=== PATIENT | female | born 1965 | race Caucasian/White ===

== ENCOUNTER 2017-02-08 07:15 | Day surgery (SDC) | payer MEDICARE, OTHER ==
--- NOTE | ~2017-02-08 | EGD ---
EGD REPORT [facility] [address] [address] NAME: RADHA JEONG : 67 STATUS : REG [facility] PAT#: [id number] AGE: 51 ADM/REG DATE : 02/08/17 MR#: [id number] REPORT SERV DATE: 02/08/17 DICTATED BY: ALEXANDRA PISANO DATE: 02/08/17 REPORT STATUS : Draft TRANSCRIBED BY: [facility] DATE: 02/08/17 Endoscopy Center Patient Name: Radha Jeong Date of : 1965 Attending MD: ALEXANDRA PISANO MD Procedure Date No Time: 02/08/2017 Procedure: Upper GI endoscopy Indications: Follow-up of esophageal varices in patient with suspected portal hypertension Referring MD: ANNA BROOKS MD, ADILIA TATE Medicines: as per anesthesia Complications: No immediate complications. Procedure: Pre-Anesthesia Assessment: - ASA Grade Assessment: III - A patient with severe systemic disease. After obtaining informed consent, the endoscope was passed under direct vision. Throughout the procedure, the patient's blood pressure, pulse, and oxygen saturations were monitored continuously. The [facility] [id number] was introduced through the mouth, and advanced to the second part of duodenum. The upper GI endoscopy was accomplished without difficulty. The patient tolerated the procedure. Findings: Grade I varices were found in the middle third of the esophagus and in the lower third of the esophagus. Mild portal hypertensive gastropathy was found in the gastric antrum. Localized mild inflammation characterized by erythema was found in the gastric body. The cardia and gastric fundus were normal on retroflexion. The examined duodenum was normal. Impression: - Grade I esophageal varices. - Portal hypertensive gastropathy. - Gastritis. - Normal examined duodenum. Recommendation: - Continue present medications. Procedure Code(s): --- Professional --- 45897, Esophagogastroduodenoscopy, flexible, transoral; diagnostic, including collection of specimen(s) by brushing or washing, when performed (separate procedure) EGD REPORT [facility] [address] [place]. [address] NAME: RADHA JEONG : [birth year] STATUS : REG [facility] PAT#: [id number] AGE: 51 ADM/REG DATE : 02/08/17 MR#: [id number] REPORT SERV DATE: 02/08/17 DICTATED BY: ALEXANDRA PISANO DATE: 02/08/17 REPORT STATUS : Draft TRANSCRIBED BY: [employer] DATE: 02/08/17 Diagnosis Code(s): --- Professional --- I85.00, Esophageal varices without bleeding K76.6, Portal hypertension K31.89, Other diseases of stomach and duodenum K29.70, Gastritis, unspecified, without bleeding CPT copyright 2013 [employer]. All rights reserved. The codes documented in this report are preliminary and upon linting machine operator review may be revised to meet current compliance requirements. ALEXANDRA PISANO MD 02/08/2017 9:08 AM This report has been signed electronically. Number of Addenda: 0 Note Initiated On: 02/08/2017 8:44 AM Scope Withdrawal Time 0 hours 0 minutes 0 seconds [address] [place], [place] [id number]
[~2017-02-08 07:15] MED LIST: ACET500CAP PO; ALPHA LIPOIC50 M1 PO; BL FLAX SEED1000 MG OR; CARASPUDL PO; DEMA10T PO; DEMA20 PO; FLAXSEED OIL1000 MG PO; FLUTICASONE PROPION; GENVOYA; INTEGRA; INTEGRA PLUS C1 EACH PO; INTEGRA PO; ISENTRESS400 MG PO; KLOR-CON 1010 MEQ PO; KLOR-CON M2020 MEQ PO; KLOR-CON20 MEQ; LEXAPRO10 PO; LEXAPRO20 PO; LIPOTRIAD1 CAP; MARI2.5 PO; MEGACEUDL PO; MULTI-VIT HP OR; MULTIVIT/MIN PO; MYFERON 150150 MG OR; NEUR300 PO; NORVIR100 PO; PREZCOBIX PO; PREZISTA600 MG PO; PROTONIX PO; SPIRO25 PO; STRIBILD TABLE1 EACH PO; SURBEX-T1 TAB PO; SURBEX/ZINC1 TAB PO; TESS PO; TIVICAY PO; TIVICAY50 MG PO; TRAZ50 PO; TRIVORA-28 PO; TRUVADA; TRUVADA PO; ULTRAM50 PO; VITC500 PO; VITE PO; XANAX1 MG PO; ZOFRAN4 PO; [UNRECOGNIZED DRUG - OTHER]
== END 2017-02-08 23:59 | disposition home or self-care (01) ==
LOC: DMU 07:15
PROVIDERS: Internal Medicine Gastroenterology
PROC: 0DJ08ZZ Inspection of Upper Intestinal Tract, Via Natural or Artificial Opening Endoscopic (ICD-10-PCS; principal; 2017-02-08 09:00)
DX: I85.00 Esophageal varices without bleeding (principal); K76.6 Portal hypertension; K31.89 Other diseases of stomach and duodenum; K29.70 Gastritis, unspecified, without bleeding; R18.8 Other ascites; K74.60 Unspecified cirrhosis of liver; I81 Portal vein thrombosis; F41.9 Anxiety disorder, unspecified; F32.9 Major depressive disorder, single episode, unspecified; K21.9 Gastro-esophageal reflux disease without esophagitis; E89.0 Postprocedural hypothyroidism; Z88.1 Allergy status to other antibiotic agents; K64.9 Unspecified hemorrhoids; M81.0 Age-related osteoporosis without current pathological fracture; D64.9 Anemia, unspecified; Z21 Asymptomatic human immunodeficiency virus [HIV] infection status; Z88.0 Allergy status to penicillin; Z98.890 Other specified postprocedural states; Z88.2 Allergy status to sulfonamides; Z88.5 Allergy status to narcotic agent; Z79.899 Other long term (current) drug therapy; Z87.891 Personal history of nicotine dependence
CPT/HCPCS: 84703